=== PATIENT | female | born 1975 | race Caucasian/White ===

== ENCOUNTER 2021-01-31 20:40 | Emergency (ER) | payer BC, MEDICAID ==
--- NOTE | 2021-01-31 21:08 | EDM.PDOC ---
ED HPI GENERAL MEDICAL PROBLEM - General Chief Complaint: General Stated Complaint: FISH HOOK Time Seen by Provider: 01/31/21 20:56 Source of Information: Reports: Patient History Limitations: Reports: No Limitations - History of Present Illness INITIAL COMMENTS - FREE TEXT/NARRATIVE: fishhook to the right hand last tetanus 8 yrs ago Onset: Sudden Duration: Hour(s): (1) Past Medical History Psychiatric History: Reports: Anxiety ED ROS GENERAL - Review of Systems Review Of Systems: See Below Constitutional: Reports: No Symptoms HEENT: Reports: No Symptoms Respiratory: Reports: No Symptoms Cardiovascular: Reports: No Symptoms GI/Abdominal: Reports: No Symptoms Musculoskeletal: Reports: No Symptoms Neurological: Reports: No Symptoms Psychiatric: Reports: No Symptoms ED EXAM, GENERAL - Physical Exam Exam: See Below Exam Limited By: No Limitations General Appearance: Alert, WD/WN, No Apparent Distress Eye Exam: Bilateral Eye: EOMI Respiratory/Chest: No Respiratory Distress, Lungs Clear Cardiovascular: Normal Peripheral Pulses Extremities: Normal Inspection Neurological: Alert, Oriented, No Motor/Sensory Deficits Skin Exam: Other (fish hook to the dorsum of the right hand ) Course - Re-Assessments/Exams Free Text/Narrative Re-Assessment/Exam: 01/31/21 21:10 wound was cleaned local anesthesia with lidocaine 1 % - 3ml removal of fishhook without complication local antibiotics ointment and sterile dressing Tdap IM was given Departure - Departure Time of Disposition: 21:11 Disposition: Home, Self-Care 01 Condition: Good Clinical Impression: Fish hook injury of right hand Qualifiers: Encounter type: initial encounter Qualified Code(s): S69.91XA - Unspecified injury of right wrist, hand and finger(s), initial encounter - Discharge Information *PRESCRIPTION DRUG MONITORING PROGRAM REVIEWED*: Not Applicable *COPY OF PRESCRIPTION DRUG MONITORING REPORT IN PATIENT KARINA: Not Applicable Instructions: Skin Foreign Body Forms: ED Department Discharge Additional Instructions: - apply antibiotic ointment on the wound once daily - watch for signs of wound infection - Problem List & Annotations (1) Fish hook injury of right hand SNOMED Code(s): 92236819444337773 Code(s): S69.91XA - UNSP INJURY OF RIGHT WRIST, HAND AND FINGER(S), INIT ENCNTR Status: Acute Priority: Low Current Visit: Yes Qualifiers: Encounter type: initial encounter Qualified Code(s): S69.91XA - Unspecified injury of right wrist, hand and finger(s), initial encounter - Problem List Review Problem List Initiated/Reviewed/Updated: Yes - Assessment/Plan Plan: - apply antibiotic ointment on the wound once daily - watch for signs of wound infection
[2021-01-31] MEDS: Diphtheria,Pertussis(Acell),Tetanus Vaccine 0.5 ML SDV IM ONE (21:14)
== END 2021-01-31 21:15 | disposition home or self-care (01) ==
LOC: LB.ED 20:40
DX: S60.551A Superficial foreign body of right hand, initial encounter (principal); Z23 Encounter for immunization; W45.8XXA Other foreign body or object entering through skin, initial encounter
CPT/HCPCS: 90471; 90715; 99282

== ENCOUNTER 2021-04-03 13:58 | Emergency (ER) | payer BC ==
--- NOTE | 2021-04-03 14:53 | EDM.PDOC ---
ED HPI GENERAL MEDICAL PROBLEM - General Chief Complaint: Skin Complaint Stated Complaint: INJURY LEFT BREAST 03/18/21 Time Seen by Provider: 04/03/21 14:40 Source of Information: Reports: Patient History Limitations: Reports: No Limitations - History of Present Illness INITIAL COMMENTS - FREE TEXT/NARRATIVE: This patient presents to the ED for evaluation of left breast pain. She had her nipples pierced a couple of months ago and had been doing fine until she caught the jewelry in her left breast while showering. After that she developed redness, swelling, and pain. She was seen by her PCP and was initially prescribed doxycycline which did not seem to make a difference. The redness and pain was increasing and she was seen by her PCP again yesterday for the same concern. She was changed to Clindamycin yesterday and has taken 5 doses of that medication. She presents today because she says the pain is worse and describes it as more of a burning now. There has been no extension of the redness since beginning Clinda. She denies having a fever, other pain or concerns. Onset: Gradual Duration: Getting Worse Location: Reports: Chest Quality: Reports: Burning Severity: Severe Improves with: Reports: None Worsens with: Reports: None Left Breast Pain Score (Numeric/FACES): 10 - Related Data Allergies Allergy/AdvReac Type Severity Reaction Status Date / Time sulfamethoxazole Allergy Hives Verified 04/03/21 14:18 [From ] trimethoprim [From ] Allergy Hives Verified 04/03/21 14:18 Home Meds: Home Meds Gabapentin [Neurontin] 300 mg PO BID 7 Days #14 capsule 04/03/21 [Rx] Sertraline [Zoloft] 50 mg PO DAILY 04/03/21 [History] busPIRone [Buspar] 10 mg PO DAILY PRN 04/03/21 [History] 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: Psychiatric History: Reports: Anxiety Social & Family History - Family History Family Medical History: No Pertinent Family History - Tobacco Use Tobacco Use Status *Q: Current Every Day Tobacco User Years of Tobacco use: 20 Packs/Tins Daily: 0.5 - Caffeine Use Caffeine Use: Reports: Coffee - Alcohol Use Days Per Week of Alcohol Use: 7 Number of Drinks Per Day: 2 Total Drinks Per Week: 14 - Recreational Drug Use Recreational Drug Use: No ED ROS GENERAL - Review of Systems Review Of Systems: See Below Constitutional: Denies: Fever HEENT: Reports: No Symptoms Respiratory: Reports: No Symptoms Cardiovascular: Reports: No Symptoms GI/Abdominal: Reports: No Symptoms Musculoskeletal: Reports: No Symptoms Skin: Reports: Change in Color, Lesions Neurological: Reports: No Symptoms ED EXAM, SKIN/RASH Exam: See Below Exam Limited By: No Limitations General Appearance: Alert, No Apparent Distress Eye Exam: Bilateral Eye: Normal Inspection, PERRL Ears: Normal External Exam Nose: Normal Inspection Head: Atraumatic, Normocephalic Neck: Normal Inspection, Full Range of Motion Respiratory/Chest: No Respiratory Distress, Other (Lower medial quadrant of left breast erythematous, warm, mildly indurated and quite tender to touch) Extremities: Normal Inspection, Normal Range of Motion Neurological: Alert, Oriented Skin: Warm, Dry Course - Vital Signs Last Recorded V/S: Last Vital Signs Temp 36.7 C 04/03/21 14:05 Pulse 90 04/03/21 14:05 Resp 20 04/03/21 14:05 BP 171/97 H 04/03/21 14:05 Pulse Ox 98 04/03/21 14:05 Departure - Departure Time of Disposition: 14:51 Disposition: Home, Self-Care 01 Condition: Good Clinical Impression: Cellulitis of left breast, Abscess, Cellulitis - Discharge Information *PRESCRIPTION DRUG MONITORING PROGRAM REVIEWED*: Not Applicable *COPY OF PRESCRIPTION DRUG MONITORING REPORT IN PATIENT KARINA: Not Applicable Prescriptions: Gabapentin [Neurontin] 300 mg PO BID 7 Days #14 capsule Instructions: Cellulitis, Adult Referrals: PCP,None [Primary Care Provider] - Forms: ED Department Discharge Sepsis Event Note (ED) - Focused Exam Vital Signs: Vital Signs Temp Pulse Resp BP Pulse Ox 04/03/21 14:05 36.7 C 90 20 171/97 H 98
== END 2021-04-03 15:05 | disposition home or self-care (01) ==
LOC: LB.ED 13:58
DX: N61.1 Abscess of the breast and nipple (principal); Z88.2 Allergy status to sulfonamides; Z88.8 Allergy status to other drugs, medicaments and biological substances; Z72.0 Tobacco use
CPT/HCPCS: 99283

== ENCOUNTER 2021-04-25 13:31 | Emergency (ER) | payer BC ==
[2021-04-25] MEDS ORDERED: LORazepam 2 MG/ML SDV IM ONE (13:47)
[2021-04-25] MEDS ORDERED: LORazepam 2 MG/ML SDV ONE (14:03)
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
== END 2021-04-25 15:35 | disposition home or self-care (01) ==
LOC: LB.ED 13:31
DX: F41.9 Anxiety disorder, unspecified (principal); Z88.1 Allergy status to other antibiotic agents; Z72.0 Tobacco use
CPT/HCPCS: 36415; 80053; 80307; 81001; 84443; 85025; 96372; 99283; J2060

== ENCOUNTER 2023-07-23 12:06 | Day surgery (SDC) | payer BC ==
[~2023-07-23 12:06] MED LIST: Metoclopramide 10 MG/2 ML SDV IV PRN
[2023-07-23] MEDS: Sodium Chloride 0.9% 1,000 ML IV SCH (13:13)
[2023-07-23] MEDS ORDERED: Propofol 1,000 MG/100 ML SDV ONE (14:00)
[2023-07-23 14:30] VITALS: BP 128/82; PULSE 72
== END 2023-07-23 14:50 | disposition home or self-care (01) ==
LOC: LB.SDS 12:06
PROVIDERS: ATTEND Surgery
DX: D12.3 Benign neoplasm of transverse colon (principal); F41.9 Anxiety disorder, unspecified; F32.A Depression, unspecified; F17.200 Nicotine dependence, unspecified, uncomplicated; Z79.899 Other long term (current) drug therapy
CPT/HCPCS: J2704; J7030